=== PATIENT | male | born 1950 | race Caucasian/White ===

== ENCOUNTER 2024-11-26 09:20 | Emergency (ER) | payer MEDICARE, MEDICAID ==
[~2024-11-26] VITALS: Ht 172.7 cm; Wt 95.0 kg
[2024-11-26 09:24] VITALS: O2SAT 95
[2024-11-26] MEDS ORDERED: IBUP-2029 MT (09:31)
[2024-11-26 10:56] VITALS: TEMP 36.78072; O2SAT 95
[2024-11-26 11:00] VITALS: BP 143/92; PULSE 89; RESP 18
[2024-11-26] MEDS: KETOROLAC 30MG/ML VIAL IM ONE (11:00)
== END 2024-11-26 11:08 | disposition home or self-care (01) ==
LOC: ER 09:49
DX: M54.9 Dorsalgia, unspecified (principal); I10 Essential (primary) hypertension; E11.9 Type 2 diabetes mellitus without complications; F19.90 Other psychoactive substance use, unspecified, uncomplicated
CPT/HCPCS: 99283; 96372; J1885